=== PATIENT | female | born 2000 | race Caucasian/White ===

== ENCOUNTER 2020-08-16 09:45 | Outpatient (RCR) | payer BC, SELFPAY ==
--- NOTE | 2020-08-03 16:06 | P.PNPSP_ITS ---
Subjective Subjective Date of Service: 08/03/20 Reason For Visit: F31.4 Interim History: I have been OK, but a bit down. I am managing. I am getting enough sleep, doing my best to keep up with school work, I am just doing. 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 Reports improvement. 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 Med adjustment (Vraylar) has helped. Last week, noticed a shift down, not unbearable, but not the best. Discussed titration and augmentation options. Medication Compliance: Yes Side effects from medications: No Attending Groups: Yes Mental Status Exam Mental Status Exam Patient Orientation: Person, Place, Time and Situation Level of Consciousness: Awake and Alert Patient Behavior: Appropriate Mood Description: Calm, Appropriate and Nervous (at first) Affect Description: Calm and Appropriate Patient Cognition Impaired: No Ability to Follow Directions: Excellent Speech Pattern: Clear Memory Description: Intact Hallucinations: None Delusions: Not Present Thought Process: Intact Thought Content: positive for Intact Depressive Symptoms: Loss of Energy and Difficulty Concentrating Judgement: Good Assessment & Plan Patient educated on: medication risk/benefits and therapeutic strategies Informed Consent: understands Reason for contiued partial hosp. stay Substantial Risk for: rapid decompensation Certification I certify that partial hospital treatment is medically necessary due to the symptoms and problems resulting from the patient's mental illness and the failu re to treat the patient at the partial hospital level of care would likely result in the patient requiring inpatient psychiatric care which could not be prevented at a less intensive level of care. Greater than 50% of the session was spent on counseling and/or coordination of care Discharge Plan Discharge Attending provider: Akash Reddy Additional Instructions: Begin Trileptal 300 mg HS Medications: New oxcarbazepine 300 mg tablet 300 mg PO BEDTIME Qty: 7 RF: 0 No Action lamotrigine 200 mg tablet 200 mg PO BID RF: 0 methylphenidate HCl 10 mg tablet 10 mg PO BEDTIME RF: 0 bupropion HCl 300 mg tablet extended release 24 hr 300 mg PO QAM RF: 0 bupropion HCl 150 mg tablet extended release 24 hr 150 mg PO QAM RF: 0 Vyvanse 70 mg capsule 70 mg PO QAM RF: 0 Vraylar 1.5 mg 1.5 mg PO DAILY RF: 0 hydroxyzine pamoate 25 mg 25 - 50 mg PO PRN (Reason: Anxiety) RF: 0
--- NOTE | 2020-08-06 15:56 | PC.NURSE ---
I called and spoke with pt about treatment needs, aftercare plans, and potential discharge date.
--- NOTE | 2020-08-10 14:27 | P.PNPSP_ITS ---
Subjective Subjective Date of Service: 08/10/20 Reason For Visit: F31.4 Interim History: Nay reports she has been working on what she needs for accomodations for her course work. She has asked for input from the group and from her therapist. She has come up with a few ideas-to ask that the three lowest grades per class are dismissed, to ask that she is allowed to not turn in assignments which are less important overall, to have no immediate deadlines and be allowed to turn in assignments upon completion and to possibly take the lab she is assigned to this semester next semester as she has missed three classes due to treatment responsibilities and is mandated to be present for the lab. Overall, she reports feeling overwhelmed at times. She has not initiated Trileptal. She reports she has had an up swing in mood with some modest increase in her energy-she evaluates this when she wants to clean and re- organize her rock collection. Sleep is slightly decreased, but adequate. Medication Compliance: Yes Side effects from medications: No Attending Groups: Yes Review of Systems Review of Systems Yes all other systems are reviewed and are negative Psychiatric: Reports mood swings Comments: upswing in energy, cleaning, organizing Mental Status Exam Mental Status Exam Patient Orientation: Person, Place, Time and Situation Level of Consciousness: Awake, Appropriate and Alert Patient Behavior: Appropriate and Cooperative Mood Description: Appropriate, Anxious and Apprehensive Affect Description: Appropriate, Anxious and Apprehensive Patient Cognition Impaired: No Ability to Follow Directions: Excellent Speech Pattern: Clear and Appropriate Memory Description: Intact Hallucinations: None Delusions: Not Present Thought Process: Intact Thought Content: positive for Intact Depressive Symptoms: Increased Anxiety (increases in energy and cleaning organizing activity) Judgement: Good Assessment & Plan Patient educated on: diagnosis, medication risk/benefits and therapeutic strategies Informed Consent: understands and further education needed Reason for contiued partial hosp. stay Substantial Risk for: inability to function and rapid decompensation Certification I certify that partial hospital treatment is medically necessary due to the symptoms and problems resulting from the patient's mental illness and the failure to treat the patient at the partial hospital level of care would likely result in the patient requiring inpatient psychiatric care which could not be prevented at a less intensive level of care. Greater than 50% of the session was spent on counseling and/or coordination of care Discharge Plan Discharge Attending provider: Akash Reddy Additional Instructions: Nay has not initiated Trileptal 300 mg HS yet. Medications: New oxcarbazepine 300 mg tablet 300 mg PO BEDTIME Qty: 7 RF: 0 No Action lamotrigine 200 mg tablet 200 mg PO BID RF: 0 methylphenidate HCl 10 mg tablet 10 mg PO BEDTIME RF: 0 bupropion HCl 300 mg tablet extended release 24 hr 300 mg PO QAM RF: 0 bupropion HCl 150 mg tablet extended release 24 hr 150 mg PO QAM RF: 0 Vyvanse 70 mg capsule 70 mg PO QAM RF: 0 Vraylar 1.5 mg 1.5 mg PO DAILY RF: 0 hydroxyzine pamoate 25 mg 25 - 50 mg PO PRN (Reason: Anxiety) RF: 0
--- NOTE | 2020-08-13 13:57 | PC.NURSE ---
LM for pt's therapist, Taylor Whelan,
--- NOTE | 2020-08-16 16:13 | HO.PHPPROGNO ---
Subjective Subjective Date of Service: 08/16/20 Reason For Visit: F31.4 Interim History: Nay reports she has taken 3 doses of Trileptal without SE and with reasonable result. Today she feels more like normal and wants to continue the Trileptal for a time. Reports sleep is appropriate, appetite is good but finds it to be low mid-day. At times, feels wierd depersonalized dream like state with some thoughts of self-harm without plan along with impulsivity. She does not worry she will act on these however. Also reports adequate energy. Medication Compliance: Yes Side effects from medications: Yes Attending Groups: Yes Review of Systems Psychiatric: Reports anxiety, Reports mood swings and Reports suicidal ideation (passive thoughts of self-harm) Mental Status Exam Mental Status Exam Patient Orientation: Person, Place, Time and Situation Level of Consciousness: Awake, Appropriate and Alert Patient Behavior: Appropriate and Cooperative Mood Description: Flat Affect Description: Flat Patient Cognition Impaired: No Ability to Follow Directions: Excellent Speech Pattern: Clear (slowed), Soft-Spoken and Long Pauses Memory Description: Intact Hallucinations: None Delusions: Not Present Perceptual Disturbances: Depersonalization (at times she reports) Thought Process: Intact Thought Content: positive for Intact and positive for Logical Depressive Symptoms: Increased Anxiety and Thoughts of /Suicide (thoughts of self harm without plan or intent at times) Judgement: Good Assessment & Plan Patient educated on: medication risk/benefits and therapeutic strategies Informed Consent: understands Reason for contiued partial hosp. stay Substantial Risk for: harm to self, inability to function and rapid decompensation Certification I certify that partial hospital treatment is medically necessary due to the symptoms and problems resulting from the patient's mental illness and the failure to treat the patient at the partial hospital level of care would likely result in the patient requiring inpatient psychiatric care which could not be prevented at a less intensive level of care. Greater than 50% of the session was spent on counseling and/or coordination of care Discharge Plan Discharge Attending provider: Akash Reddy Additional Instructions: Continue current regime Continue Trileptal 300 mg hs. Medications: Continued oxcarbazepine 300 mg tablet 300 mg PO BEDTIME Qty: 14 RF: 1 No Action lamotrigine 200 mg tablet 200 mg PO BID RF: 0 methylphenidate HCl 10 mg tablet 10 mg PO BEDTIME RF: 0 bupropion HCl 300 mg tablet extended release 24 hr 300 mg PO QAM RF: 0 bupropion HCl 150 mg tablet extended release 24 hr 150 mg PO QAM RF: 0 Vyvanse 70 mg capsule 70 mg PO QAM RF: 0 Vraylar 1.5 mg 1.5 mg PO DAILY RF: 0 hydroxyzine pamoate 25 mg 25 - 50 mg PO PRN (Reason: Anxiety) RF: 0
== END 2020-08-16 23:55 | disposition home or self-care (01) ==
LOC: HO.PHPA 09:45
PROVIDERS: Visit Provider Psychiatry & Neurology Psychiatry
DX: F31.30 Bipolar disorder, current episode depressed, mild or moderate severity, unspecified (principal)
CPT/HCPCS: 90853; 99213; 99214

== ENCOUNTER 2021-01-04 14:44 | Outpatient (REF) | payer BC, SELFPAY ==
[2021-01-04 15:16] LABS: MANUAL DIFF FLAG NO
[2021-01-04 15:25] LABS: Basophils Percent Auto 0.9 % (0-2); Eosinophils Absolute Auto 0.1 X10*3/uL (0.0-0.4); Eosinophils Percent Auto 2.3 % (0-4); Hematocrit 41.8 % (37-47); Hemoglobin 14.3 g/dl (12.0-16.0); Imm Gran Abs Auto 0.01 X10*3/uL (0.00-0.03); Imm Gran Pct Auto 0.2 % (0.0-0.4); Lymphocytes Absolute Auto 1.7 X10*3/uL (1.2-4.9); Lymphocytes Percent Auto 38.1 % (20-40); Mean Corpuscular HGB Conc 34.2 g/dl (31.0-35.0); Mean Corpuscular Hemoglobin 32.4 pg (27.0-33.0); Mean Corpuscular Volume 94.8 fL (80-98); Mean Platelet Volume 8.4 fL (9.4-12.3); Monocytes Absolute Auto 0.5 X10*3/uL (0.1-1.2); Monocytes Percent Auto 10.4 % (2-11); Neutrophils Absolute Auto 2.1 X10*3/uL (2.0-8.3); Neutrophils Percent Auto 48.1 % (45-73); Platelet Count 287 X10*3/uL (160-400); Red Blood Count 4.41 X10*6/uL (4.20-5.50); Red Cell Distribution Width 11.2 % (11.0-16.0); White Blood Count 4.4 X10*3/uL (4.8-10.8)
[2021-01-04 15:57] LABS: Alanine Aminotransferase 39 U/L (0-31); Albumin Level 4.8 g/dL (3.5-5.0); Alkaline Phosphatase 64 U/L (39-117); Anion Gap 15 (12-20); Aspartate Amino Transferase 20 U/L (5-31); Bilirubin Total 0.5 mg/dL (0.0-1.0); Blood Urea Nitrogen 6 mg/dL (9-16); Calcium 9.3 mg/dL (8.4-10.2); Carbon Dioxide 25 mmol/L (22-29); Chloride 105 mmol/L (96-108); Estimated Glomerular Filt Rate > 60; Glucose Random 89 mg/dL (60-115); Potassium 4.7 mmol/L (3.3-5.1); Sodium 140 mmol/L (135-145); Total Protein 7.5 g/dL (6.5-8.0)
[2021-01-04 16:18] LABS: Free T4 (Free Thyroxine) 0.91 ng/dL (0.71-1.85); Thyroid Stimulating Hormone 1.33 uIU/mL (0.32-4.0)
== END 2021-01-04 14:45 | disposition home or self-care (01) ==
LOC: HO.LAB 14:44
PROVIDERS: PCP Family Medicine; Visit Provider Clinical Nurse Specialist Psychiatric/Mental Health, Adult
DX: F31.4 Bipolar disorder, current episode depressed, severe, without psychotic features (principal)
CPT/HCPCS: 36415; 80053; 84439; 84443; 85025

== ENCOUNTER 2021-01-31 14:13 | Outpatient (REF) | payer BC, SELFPAY ==
[2021-01-31 16:18] LABS: Lithium 0.14 mmol/L (0.60-1.20)
[2021-01-31 16:21] LABS: Anion Gap 11 (12-20); Blood Urea Nitrogen 8 mg/dL (9-16); Calcium 8.6 mg/dL (8.4-10.2); Carbon Dioxide 27 mmol/L (22-29); Chloride 103 mmol/L (96-108); Estimated Glomerular Filt Rate > 60; Glucose Random 86 mg/dL (60-115); Potassium 4.4 mmol/L (3.3-5.1); Sodium 137 mmol/L (135-145)
[2021-01-31 16:45] LABS: Thyroid Stimulating Hormone 1.69 uIU/mL (0.32-4.0)
== END 2021-01-31 14:14 | disposition home or self-care (01) ==
LOC: HO.LAB 14:13
PROVIDERS: PCP Family Medicine; Visit Provider Psychiatry & Neurology Psychiatry
DX: F31.9 Bipolar disorder, unspecified (principal)
CPT/HCPCS: 36415; 80048; 80178; 84443

== ENCOUNTER 2021-02-02 10:00 | Outpatient (RCR) | payer BC, SELFPAY ==
--- NOTE | 2021-01-03 14:44 | P.HPPSP_ITS ---
HPI Chief Complaint: depression Sources of Information: patient interviewed and chart reviewed HPI Narrative: 20 yo female, returns to [facility] for an increase in depressive and anxious sx along with SI, intrusive thoughts and images, visions of self harm with no plan or intent. Reports anxiety has been prominent with mood cycling. Reports 3 months of stability after her last discharge-she reported balance issues, felt it was Trileptal, so she stopped it and I seem to be in this wierd months long mixed episode with opposing feelings. Reports sleep is 6-8 hours with one week of 4-5 hours and recently 3 hours. When feeling depressed, she does lie in bed, not sleeping and feels this does have effect on sleep at night. Reports ongoing cannabis use daily, which she is unsure how helpful it is Past Psychiatric History: IP: Denies OP: Chantal De LunaMhYcbooy-[phone]. Call to Chantal who would like pt to have a lithium trial while here-father had success with [place]. Pt is unsure but will consider. Psychotherapy with Taylor Whelan since sixth grade. PHP: [facility] [place] Jun 2020 Medical Evaluation Reviewed: No (NA) [facility] Medical History (Updated 01/03/21 @ 17:52 by Ailyn Rosado, PAULINO) Attention deficit hyperactivity disorder Bipolar disorder, curr episode mixed, severe, w/o psychotic features Cannabis use disorder, severe, dependence Lactose intolerance Learning disability Raynaud phenomenon Right hip pain Family History: ADHD Bipolar Disorder Social History: Lives with parents and two brothers. Currently unemployed Brenden at [employer]- scheduled to complete degree 2020. Substance History: Cannabis daily. Denies hx of detox/rehab. Trauma History: Yes Diagnostics Labs Labs: Will order CBCD, CMP, FT4, TSH to prepare for [place] trial if pt decides to do this. She will discuss with her parents this evening. Meds/Allergies Meds Narrative: Lamictal 400 mg daily Wellbutrin 450 mg daily Vraylar 4.5 mg daily Vyvanse 70 mg daily Ritalin 10 mg daily-only takes when in school-currently not using Hydroxyzine 50-100 mg hs prn Allergies Allergies Allergy/AdvReac Type Severity Reaction Status Date / Time nickel Allergy Unknown rash Verified 08/03/20 16:39 raspberry [RASPBERRY] Allergy Unknown GI Issues Unverified 07/26/20 14:18 Mental Status Exam Mental Status Exam Patient Appearance: Appropriate Patient Orientation: Person, Place, Time and Situation Level of Consciousness: Awake and Alert Patient Behavior: Appropriate, Talkative and Cooperative Mood Description: Anxious and Apprehensive Affect Description: Flat Patient Cognition Impaired: No Ability to Follow Directions: Good Speech Pattern: Spontaneous Speech Memory Description: Intact Hallucinations: None Delusions: Not Present Thought Process: Rumination Thought Content: positive for [place], positive for Circumstantial and positive for Perseveration Depressive Symptoms: Increased Anxiety, Diff. Making Decisions, Difficulty Sleeping, Loss of Int. in Activity, Hopelessness, Unhappiness and Thoughts of /Suicide (denies current SI plan or intent today- hx [place] intrusive thoughts 4-5 x day) Judgement: Good Assessment & Plan Assessment & Plan (1) Bipolar disorder, curr episode mixed, severe, w/o psychotic features: Status: Acute Code(s): F31.63 - Bipolar disorder, current episode mixed, severe, without psychotic features Assessment and Plan: -Labs- CBCD, CMP, TSH, FT4, to prepare for possible [place] trial suggested by Chantal De Luna, pt's prescribing clinician. -Pt will discuss potential trial with her parents. (2) Cannabis use disorder, severe, dependence: Status: Acute Code(s): F12.20 - Cannabis dependence, uncomplicated Assessment and Plan: -Discussed the contribution of cannabis use to mood disorder. -Pt contracted to abstain during PHP. Discussed considering stopping use (3) Attention deficit hyperactivity disorder: Status: Inactive Code(s): F90.9 - Attention-deficit hyperactivity disorder, unspecified type Certification I certify that partial hospital treatment is medically necessary due to the symptoms and problems resulting from the patient's mental illness and the failure to treat the patient at the partial hospital level of care would likely result in the patient requiring inpatient psychiatric care which could not be prevented at a less intensive level of care. Telehealth Telehealth Location of provider rendering services: practice address Location of patient: address on file Patient Identification confirmed using: Name, : Yes Telehealth method: video Patient verbally consented to treatment: Yes Patient verbally consented to billing insurance company: Yes Patient informed of any privacy concerns related to visit: Yes Time spent with patient (mins): 40
[2021-01-04 08:25] VITALS: BMI 23.9
--- NOTE | 2021-01-04 08:47 | PC.ADMIT ---
Patient is a 20 year old female who self referred to the [facility] program d/t mood instability. Patient has a dx of Bipolar d/o and reports experiencing mixed episodes of extreme highs and lows. Patient reports increase in depression and anxiety and increased intrusive thoughts of and thoughts to self harm. Denied plan or intent to act on the thoughts. Denied hx of suicide attempts or hx of self harm. Patient reports that she has had SI for years that comes and goes and believes currently that the thoughts are more consistent. Patient has been to the PHP program in the past and found it helpful. Patient has been using marijuana daily to cope with how she is feeling. Patient acknowledges that this is an issue and wants to quit. Stated she smokes all day. She is aware that she can not smoke while in the program. Recommended patient participate in online substance use groups in addiction to [facility] for more support. Patients medications reconciled with patient and patient's pharmacy. Patient last filled Wellbutrin 11/09/20 and receives samples of Vraylar from her provider. Will complete reconciliation with patient out patient provider. Patient gave verbal permission to email her a copy of her saftey plan.
--- NOTE | 2021-01-06 08:43 | PC.NURSE ---
Patient's provider Chantal Savage called and left a voice mail confirming what medications patient is taking.
--- NOTE | 2021-01-17 15:12 | PC.NURSE ---
I called and LM with pt asking how the program is going for her, and reminding her of her discharge date on 01/21/21.
--- NOTE | 2021-01-17 16:57 | HO.PHPPROGNO ---
Subjective Subjective Date of Service: 01/17/21 Reason For Visit: depression Interim History: Reports mood fluctuations and being in a negative space often, energy is variable and my body feels manic at times , describes lability, anergy, sadness- I am seeing the world in a sad sense with a depressive bias . Pt has been making a decision regarding [place]-She has talked with her mom who believes she should try it and has talked with her dad a bit (he took [place] she reports) and told her he did not like feeling so flat. Pt agreed to labs last week which were OK-she was nervous about adding [place]-has appt with her prescriber on 01/19 and will continue to discuss. SI- not as bad-I can push the thoughts away-denies any plan or intent. Reports thoughts of just not wanting to be here without plan or intent. Sleep-poor last , but overall WNL Medical-denies Substance use-smoked x 1 Medication Compliance: Yes Side effects from medications: No Attending Groups: Yes Review of Systems Review of Systems Yes all other systems are reviewed and are negative (denies) Psychiatric: Reports anxiety, Reports depression and Reports mood swings Mental Status Exam Mental Status Exam Patient Appearance: Appropriate Patient Orientation: Person, Place, Time and Situation Level of Consciousness: Awake and Alert Patient Behavior: Talkative Mood Description: Flat Affect Description: Flat Patient Cognition Impaired: No Ability to Follow Directions: Good Speech Pattern: Spontaneous Speech Memory Description: Intact Hallucinations: None Delusions: Not Present Thought Process: Intact and Rumination Thought Content: positive for Intact Depressive Symptoms: Diff. Making Decisions and Unhappiness Judgement: Good Diagnostics Vital Signs (24Hr): Body Mass Index 23.9 Labs Labs: WBC 4.4, BUN .6, ALT 39, TSH and FT4 WNL Assessment & Plan Assessment & Plan (1) Cannabis use disorder, severe, dependence: Status: Acute Code(s): F12.20 - Cannabis dependence, uncomplicated (2) Bipolar disorder, curr episode mixed, severe, w/o psychotic features: Status: Acute Code(s): F31.63 - Bipolar disorder, current episode mixed, severe, without psychotic features Assessment and Plan: -Call to Chantal Justice to discuss pts sx, lab results and upcoming appt along with ambivalance about [place] trial. Chantal mcbride contineu discussion with pt. Certification I certify that partial hospital treatment is medically necessary due to the symptoms and problems resulting from the patient's mental illness and the failure to treat the patient at the partial hospital level of care would likely result in the patient requiring inpatient psychiatric care which could not be prevented at a less intensive level of care. Greater than 50% of the session was spent on counseling and/or coordination of care Discharge Plan Discharge Attending provider: Akash Reddy Medications: No Action lamotrigine 200 mg tablet 400 mg PO DAILY RF: 0 bupropion HCl 300 mg tablet extended release 24 hr 300 mg PO QAM RF: 0 bupropion HCl 150 mg tablet extended release 24 hr 150 mg PO QAM RF: 0 Vyvanse 70 mg capsule 70 mg PO QAM RF: 0 Vraylar 1.5 mg 4.5 mg PO DAILY RF: 0 hydroxyzine pamoate 25 mg 25 - 50 mg PO BEDTIME PRN (Reason: Anxiety) RF: 0 Telehealth Telehealth Location of provider rendering services: practice address Location of patient: address on file Patient Identification confirmed using: Name, : Yes Telehealth method: video Patient verbally consented to treatment: Yes Patient verbally consented to billing insurance company: Yes Patient informed of any privacy concerns related to visit: Yes Time spent with patient (mins): 15
--- NOTE | 2021-01-18 14:17 | PC.NURSE ---
RM from and called pt to discuss discharge from [facility] on 01/21/21. She reports feeling good about this plan, and has aftercare in place.
--- NOTE | 2021-01-20 14:25 | PC.NURSE ---
I called and spoke to pt after she reported passive SI in group, and depressed mood with increased manic energy. Pt said she is safe now, and coping well despite struggling. She agreed to stay in PHP another week, rather than discharge tomorrow. Pt has also agreed to start [place], as suggested by the medication providers. She said she spoke to Sylvie Hopkins APRN about this, and will call Sylvie today to tell her she wants to start it.
--- NOTE | 2021-01-21 13:29 | HO.PHPPROGNO ---
Subjective Subjective Date of Service: 01/21/21 Reason For Visit: depression Interim History: The patient reported mixed symptoms, with dysphoria, anhedonia and lack of energy with short bursts of increased energy, irritability and flight of ideas. She was open for a trial of [place] since she is taking Lamictal and samples of Vraylar with the highest dose of Wellbutrin. She denied safety concerns, she is able to contract for safety Medication Compliance: Yes Side effects from medications: No Review of Systems Acute medical concerns: No Medical Review of Systems: unchanged Mental Status Exam Mental Status Exam Patient Appearance: Well Grooomed Patient Orientation: Person, Place, Time and Situation Level of Consciousness: Awake Patient Behavior: Appropriate Mood Description: Withdrawn Affect Description: Constricted Patient Cognition Impaired: No Ability to Follow Directions: Good Speech Pattern: Clear Memory Description: Intact Hallucinations: None Delusions: Not Present Thought Process: Goal Oriented Thought Content: positive for [place] of Ideas Depressive Symptoms: Feelings of Worthlessness and Loss of Energy Judgement: Fair Judgement and Insight: Insight improved Diagnostics Vital Signs (24Hr): Body Mass Index 23.9 Assessment & Plan Assessment & Plan (1) Bipolar 1 disorder, mixed, moderate: Status: Acute Code(s): F31.62 - Bipolar disorder, current episode mixed, moderate Assessment and Plan: The patient agreed to start [place] 300 mg po qhs on top of her other medications Patient educated on: diagnosis, medication risk/benefits and therapeutic strategies Informed Consent: understands Reason for contiued partial hosp. stay Substantial Risk for: inability to function Certification I certify that partial hospital treatment is medically necessary due to the symptoms and problems resulting from the patient's mental illness and the failure to treat the patient at the partial hospital level of care would likely result in the patient requiring inpatient psychiatric care which could not be prevented at a less intensive level of care. Plan: Add [place] 300 mg po qhs F/U next week Greater than 50% of the session was spent on counseling and/or coordination of care Discharge Plan Discharge Attending provider: Aaksh Reddy Additional Instructions: Patient agreed to start a slow titration of [place] Medications: New lithium carbonate 300 mg capsule 300 mg PO BEDTIME Qty: 7 RF: 1 No Action lamotrigine 200 mg tablet 400 mg PO DAILY RF: 0 bupropion HCl 300 mg tablet extended release 24 hr 300 mg PO QAM RF: 0 bupropion HCl 150 mg tablet extended release 24 hr 150 mg PO QAM RF: 0 Vyvanse 70 mg capsule 70 mg PO QAM RF: 0 Vraylar 1.5 mg 4.5 mg PO DAILY RF: 0 hydroxyzine pamoate 25 mg 25 - 50 mg PO BEDTIME PRN (Reason: Anxiety) RF: 0 Telehealth Telehealth Location of provider rendering services: practice address Location of patient: address on file Patient Identification confirmed using: Name, : Yes Telehealth method: video Patient verbally consented to treatment: Yes Patient verbally consented to billing insurance company: Yes Patient informed of any privacy concerns related to visit: Yes Time spent with patient (mins): 20
--- NOTE | 2021-01-24 12:49 | PC.NURSE ---
Called patient and let her know that we cancelled groups for the remainder of the day as we lost power. Patient plans on attending groups tomorrow.
--- NOTE | 2021-01-24 12:59 | P.PNPSP_ITS ---
Subjective Subjective Date of Service: 01/24/21 Reason For Visit: depression Interim History: The patient reported that she has just started [place] at hs. She is more tired and thirsty since LIthium has started. No oversedated or tremors Medication Compliance: Yes Side effects from medications: Yes Review of Systems Review of Systems Yes all other systems are reviewed and are negative Mental Status Exam Mental Status Exam Patient Appearance: Well Grooomed Patient Orientation: Person Level of Consciousness: Awake Patient Behavior: Appropriate Mood Description: Calm Affect Description: Calm Patient Cognition Impaired: No Ability to Follow Directions: Good Speech Pattern: Clear Memory Description: Intact Hallucinations: None Delusions: Not Present Thought Content: positive for Intact Judgement: Fair Judgement and Insight: Insight: fair Diagnostics Vital Signs (24Hr): Body Mass Index 23.9 Assessment & Plan Assessment & Plan (1) Bipolar 1 disorder, mixed, moderate: Status: Acute Code(s): F31.62 - Bipolar disorder, current episode mixed, moderate Assessment and Plan: The patient tolerated very well 300 mg with no side effects, slightly better. She agreed to titrate slowly up to 450 mg at hs in 4 days then 600 mg F/U as per protocol Certification I certify that partial hospital treatment is medically necessary due to the symptoms and problems resulting from the patient's mental illness and the failure to treat the patient at the partial hospital level of care would likely result in the patient requiring inpatient psychiatric care which could not be prevented at a less intensive level of care. Greater than 50% of the session was spent on counseling and/or coordination of care Discharge Plan Discharge Attending provider: Akash Reddy Additional Instructions: Patient agreed to start a slow titration of [place] Medications: New lithium carbonate 300 mg capsule 300 mg PO BEDTIME Qty: 7 RF: 1 lithium carbonate 150 mg capsule 150 mg PO BEDTIME Qty: 14 RF: 0 Continued lamotrigine 200 mg tablet 400 mg PO DAILY RF: 0 bupropion HCl 300 mg tablet extended release 24 hr 300 mg PO QAM RF: 0 bupropion HCl 150 mg tablet extended release 24 hr 150 mg PO QAM RF: 0 Vyvanse 70 mg capsule 70 mg PO QAM RF: 0 Vraylar 1.5 mg 4.5 mg PO DAILY RF: 0 hydroxyzine pamoate 25 mg 25 - 50 mg PO BEDTIME PRN (Reason: Anxiety) RF: 0 Telehealth Telehealth Location of provider rendering services: practice address Location of patient: address on file Patient Identification confirmed using: Name, : Yes Telehealth method: voice only Patient verbally consented to treatment: Yes Patient verbally consented to billing insurance company: Yes Patient informed of any privacy concerns related to visit: Yes Time spent with patient (mins): 20
--- NOTE | 2021-02-02 13:44 | P.PNPSP_ITS ---
Subjective Subjective Date of Service: 02/02/21 Reason For Visit: depression Interim History: The patient never increased the [place] up to 600mg and her [place] level is 0.14. She missed 2 days and she felt a little down . She is going to be followed by her regular prescriber. She felt better with LIthium Medication Compliance: Intermittent Side effects from medications: No Review of Systems Review of Systems Yes all other systems are reviewed and are negative Mental Status Exam Mental Status Exam Patient Appearance: Well Grooomed Patient Orientation: Person, Place, Time and Situation Level of Consciousness: Awake and Appropriate Patient Behavior: Appropriate Mood Description: Calm Affect Description: Calm Patient Cognition Impaired: No Ability to Follow Directions: Good Speech Pattern: Clear Memory Description: Intact Hallucinations: None Delusions: Not Present Thought Process: Goal Oriented Thought Content: positive for Intact Judgement: Fair Diagnostics Vital Signs (24Hr): Body Mass Index 23.9 Assessment & Plan Assessment & Plan (1) Bipolar 1 disorder, mixed, moderate: Status: Acute Code(s): F31.62 - Bipolar disorder, current episode mixed, moderate Assessment and Plan: Increase [place] to 600 mg ER To be followed by her regular prescriber Certification I certify that partial hospital treatment is medically necessary due to the symptoms and problems resulting from the patient's mental illness and the failure to treat the patient at the partial hospital level of care would likely result in the patient requiring inpatient psychiatric care which could not be prevented at a less intensive level of care. Greater than 50% of the session was spent on counseling and/or coordination of care Discharge Plan Discharge Attending provider: Akash Reddy Additional Instructions: Patient agreed to start a slow titration of [place] Medications: New lithium carbonate 300 mg tablet extended release 600 mg PO BEDTIME Qty: 30 RF: 0 Continued lamotrigine 200 mg tablet 400 mg PO DAILY RF: 0 bupropion HCl 300 mg tablet extended release 24 hr 300 mg PO QAM RF: 0 bupropion HCl 150 mg tablet extended release 24 hr 150 mg PO QAM RF: 0 Vyvanse 70 mg capsule 70 mg PO QAM RF: 0 Vraylar 1.5 mg 4.5 mg PO DAILY RF: 0 hydroxyzine pamoate 25 mg 25 - 50 mg PO BEDTIME PRN (Reason: Anxiety) RF: 0 Telehealth Telehealth Location of provider rendering services: practice address Location of patient: address on file Patient Identification confirmed using: Name, : Yes Telehealth method: video Patient verbally consented to treatment: Yes Patient verbally consented to billing insurance company: Yes Patient informed of any privacy concerns related to visit: No Time spent with patient (mins): 15
--- NOTE | 2021-02-02 14:54 | PC.NURSE ---
Called and LM for pt asking for her to call me back to review discharge info and aftercare.
--- NOTE | 2021-02-03 08:50 | PC.NURSE ---
Patient prescriber Chantal James does not have a fax machine thus emailed her patient d/c medications list and labs completed on 01/31/21. Metter Level 0.14. Patient has a f/u appointment with her prescriber on 02/04/21 at 1500.
--- NOTE | 2021-02-03 16:03 | PC.NURSE ---
I called and left a message for Taylor Whelan at the [facility] for DBT ([phone]) informing her of pt's progress made in treatment and her discharge from [facility] today.
== END 2021-02-03 08:21 | disposition home or self-care (01) ==
LOC: HO.PHPA 10:00
PROVIDERS: Visit Provider Psychiatry & Neurology Psychiatry
DX: F31.62 Bipolar disorder, current episode mixed, moderate (principal); Z79.899 Other long term (current) drug therapy
CPT/HCPCS: 90791; 90853; 99213

== ENCOUNTER 2022-04-03 14:29 | Outpatient (REF) | payer BC, SELFPAY ==
[2022-04-03 15:23] LABS: Lithium 0.37 mmol/L (0.60-1.20)
[2022-04-03 15:35] LABS: Alanine Aminotransferase 26 U/L (0-31); Albumin Level 4.3 g/dL (3.5-5.0); Alkaline Phosphatase 59 U/L (39-117); Anion Gap 12 (12-20); Aspartate Amino Transferase 27 U/L (5-31); Bilirubin Total 0.4 mg/dL (0.0-1.0); Blood Urea Nitrogen 11 mg/dL (9-16); Calcium 9.2 mg/dL (8.4-10.2); Carbon Dioxide 27 mmol/L (22-29); Chloride 105 mmol/L (96-108); Estimated Glomerular Filt Rate > 60; Glucose Random 88 mg/dL (60-115); Potassium 4.6 mmol/L (3.3-5.1); Sodium 139 mmol/L (135-145); Total Protein 6.6 g/dL (6.5-8.0)
[2022-04-03 15:58] LABS: Free T4 (Free Thyroxine) 0.82 ng/dL (0.71-1.85); Thyroid Stimulating Hormone 2.03 uIU/mL (0.32-4.0)
== END 2022-04-03 14:30 | disposition home or self-care (01) ==
LOC: HO.LAB 14:29
PROVIDERS: PCP Family Medicine; Visit Provider Nurse Practitioner Psychiatric/Mental Health
DX: F31.62 Bipolar disorder, current episode mixed, moderate (principal); Z79.899 Other long term (current) drug therapy
CPT/HCPCS: 36415; 80053; 80178; 84439; 84443

== ENCOUNTER 2022-04-10 14:49 | Outpatient (REF) | payer BC, SELFPAY ==
--- NOTE | 2022-04-10 14:55 | ECG_ITS ---
Test Reason : F31.62 Blood Pressure : / mmHG Vent. Rate : 077 BPM Atrial Rate : 077 BPM P-R Int : 122 ms QRS Dur : 084 ms QT Int : 384 ms P-R-T Axes : 046 081 028 degrees QTc Int : 434 ms Normal sinus rhythm with sinus arrhythmia Normal ECG No previous ECGs available Referred By: Ngozi Valenzuela Electronically Signed By:Yves Oleary
[2022-04-10 16:21] LABS: Alanine Aminotransferase 26 U/L (0-31); Alkaline Phosphatase 56 U/L (39-117); Anion Gap 10 (12-20); Aspartate Amino Transferase 28 U/L (5-31); Bilirubin Total 0.4 mg/dL (0.0-1.0); Blood Urea Nitrogen 10 mg/dL (9-16); Calcium 8.7 mg/dL (8.4-10.2); Carbon Dioxide 28 mmol/L (22-29); Chloride 104 mmol/L (96-108); Estimated Glomerular Filt Rate > 60; Glucose Random 105 mg/dL (60-115); Potassium 3.9 mmol/L (3.3-5.1); Sodium 138 mmol/L (135-145); Total Protein 6.1 g/dL (6.5-8.0)
[2022-04-10 16:41] LABS: Free T4 (Free Thyroxine) 0.72 ng/dL (0.71-1.85); Thyroid Stimulating Hormone 1.73 uIU/mL (0.32-4.0)
== END 2022-04-10 14:50 | disposition home or self-care (01) ==
LOC: HO.LAB 14:49
PROVIDERS: PCP Family Medicine; Visit Provider Nurse Practitioner Psychiatric/Mental Health
DX: F31.62 Bipolar disorder, current episode mixed, moderate (principal); Z79.899 Other long term (current) drug therapy
CPT/HCPCS: 36415; 80053; 80178; 84439; 84443; 93005

== ENCOUNTER 2022-04-20 11:30 | Outpatient (RCR) | payer BC, SELFPAY ==
[2022-03-21 14:25] VITALS: BMI 21.7
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
--- NOTE | 2022-03-24 08:06 | PC.NURSE ---
Case opened in treatment team
--- NOTE | 2022-03-24 14:04 | PC.NURSE ---
Patient appeared sad in the 4th group. I called he to check in on her. She stated she did not sleep well last night only getting 2-3 hours and she has her menses which causes her to feel sad. Asked her if she was having any safety issues any SI. Patient stated she has the thoughts at times when she is stressed however she is able to let them go. Denied plan or intent to harm or kill herself. Patient stated she is able to reach out to her parents if needed. Patient has the crisis number if needed. Patient reports seeing shadows on the ceilings at times however stated she is doing ok. Stated she feels grounded. Stated she is sad when she hears others stories and sometimes feels flooded with emotions. Patient aware if the groups are too triggering she may take a break. Patient stated she thinks it is good that she is in the program at this time. She has plans to get together with her entire family at [facility] tomorrow and has an appointment with her therapist tomorrow as well. She plans on returning to the program on Sunday.
--- NOTE | 2022-03-28 09:08 | HO.PHPPROGNO ---
Subjective Subjective Date of Service: 03/28/22 Reason For Visit: bipolar,PTSD,PALOMO,ADHD,social anxiety Guardianship: No Medical Problems Affecting Mental Status: No Interim History: I feel more level today, still depressed, but improving . Says last week was more emotional, because of menstrual cycle . No SI, no AH/VH, feels safe. Did not yet try prn propanolol. Medication Compliance: Yes Side effects from medications: No Attending Groups: Yes Review of Systems Acute medical concerns: No Medical Review of Systems: unchanged Review of Systems Review of Systems Yes all other systems are reviewed and are negative Constitutional: Reports no additional constitutional complaints Mental Status Exam Mental Status Exam Narrative: NAD. Fully alert and attentive during encounter. No perceptual disturbances noted. Patient Appearance: Well Grooomed and Appropriate Patient Orientation: Person, Place, Time and Situation Level of Consciousness: Appropriate and Alert Patient Behavior: Appropriate, Cooperative and Good Eye Contact Mood Description: Depressed Affect Description: Depressed Patient Cognition Impaired: No Ability to Follow Directions: Good Speech Pattern: Clear, Appropriate and Coherent Memory Description: Intact Hallucinations: None Delusions: Not Present Perceptual Disturbances: Depersonalization Thought Process: Intact Thought Content: positive for Intact Depressive Symptoms: Increased Anxiety, Difficulty Sleeping, Loss of Int. in Activity and Increased Fatigue Judgement: Fair Diagnostics Vital Signs (24Hr): BMI result Body Mass Index 21.7 Assessment & Plan Assessment & Plan (1) Bipolar 1 disorder, mixed, moderate: Status: Acute Code(s): F31.62 - Bipolar disorder, current episode mixed, moderate Assessment and Plan: Patient reports feeling more stable today, although continues with depression sx. States that last week she was more labile, due to menstruation. Says last week she felt overwhelmed, flooded with memories during groups . Has not yet tried prn propanolol, says has not needed to. She denies any SI/HI, no safety concerns. Says her EMDR therapist has recommended she try acupuncture or massage to help relieve stress. She is considering this. She denies any AH/VH, and did not display any delusional thought during encounter. She is content with current medicaiton regimen, and is does not feel need for any changes at this time. Plan 1. Continue with current plan of care. 2. Continue with current medication regimen as prescribed by outpatient provider. 3. Follow-up as per protocol. Patient educated on: diagnosis, medication risk/benefits and therapeutic strategies Informed Consent: understands Reason for contiued partial hosp. stay Substantial Risk for: harm to self, inability to function, rapid decompensation and med/psych decompensation Certification I certify that partial hospital treatment is medically necessary due to the symptoms and problems resulting from the patient's mental illness and the failure to treat the patient at the partial hospital level of care would likely result in the patient requiring inpatient psychiatric care which could not be prevented at a less intensive level of care. I spent minutes with the patient and/or on the patient floor today, greater than?50% of which was spent counseling/coordinating care. Discharge Plan Discharge Attending provider: Vinicius Thomson Medications: New propranolol 10 mg tablet 10 mg PO BID PRN (Reason: anxiety) Qty: 5 0RF No Action bupropion HCl 150 mg tablet extended release 24 hr 150 mg PO QAM 0RF Vyvanse 70 mg capsule 70 mg PO QAM 0RF trazodone 50 mg Tablet 50 mg PO BEDTIME 0RF lithium carbonate 150 mg Capsule 150 mg PO DAILY 0RF lithium carbonate 450 mg Tablet Extended Release 450 mg PO BEDTIME 0RF lorazepam 0.5 mg Tablet 0.5 mg PO DAILY PRN (Reason: Anxiety) 0RF Rx Instructions: # 7 tabs filled 02/22/22. sertraline [Zoloft] 25 mg Tablet 37.5 mg PO DAILY 0RF Label Comments: Patient stated her prescriber increased from 25 mg to 37.5 mg daily this past weekend. Telehealth Telehealth Location of provider rendering services: practice address Location of patient: address on file Patient Identification confirmed using: Name, : Yes Telehealth method: video Patient verbally consented to treatment: Yes Patient verbally consented to billing insurance company: Yes Patient informed of any privacy concerns related to visit: Yes Minutes spent on Phone/Video with Pt.: 15
--- NOTE | 2022-04-03 15:06 | P.PNPSP_ITS ---
Subjective Subjective Date of Service: 04/03/22 Reason For Visit: bipolar,PTSD,PALOMO,ADHD,social anxiety Medical Problems Affecting Mental Status: No Interim History: Describes mood as ?overall getting better, but I still have some sadness and anxiety. No SI/HI, no safety concern. Outpatient provider increased Zoloft to 75 mg daily. Has not yet tried propanolol p.r.n. for social anxiety, plans to try it this week prior to several upcoming job interviews. Has had some difficulty staying asleep throughout night. Medication Compliance: Yes Side effects from medications: No Attending Groups: Yes Review of Systems Acute medical concerns: No Medical Review of Systems: unchanged Review of Systems Review of Systems Yes all other systems are reviewed and are negative Constitutional: Reports no additional constitutional complaints Mental Status Exam Mental Status Exam Narrative: NAD. Fully alert and attentive during encounter. No perceptual disturbances noted. Patient Appearance: Well Grooomed and Appropriate Patient Orientation: Person, Place, Time and Situation Level of Consciousness: Appropriate and Alert Patient Behavior: Appropriate, Cooperative and Good Eye Contact Mood Description: Depressed (continues depressed, but improving. ) and Anxious Affect Description: Appropriate and Depressed Patient Cognition Impaired: No Ability to Follow Directions: Good Speech Pattern: Clear, Appropriate and Coherent Memory Description: Intact Hallucinations: None Delusions: Not Present Perceptual Disturbances: Depersonalization Thought Process: Intact Thought Content: positive for Intact Depressive Symptoms: Increased Anxiety, Difficulty Sleeping (waking up, unable to fall back asleep), Loss of Int. in Activity and Increased Fatigue Judgement: Fair Diagnostics Vital Signs (24Hr): BMI result Body Mass Index 21.7 Assessment & Plan Assessment & Plan (1) Bipolar 1 disorder, mixed, moderate: Status: Acute Code(s): F31.62 - Bipolar disorder, current episode mixed, moderate Assessment and Plan: Describes mood as ?overall getting better, but I still have some sadness and anxiety. No SI/HI, no safety concern. Outpatient provider increased Zoloft to 75 mg daily recently. Has not yet tried propanolol p.r.n. for social anxiety, plans to try it this week prior to several upcoming job interviews. Reviewed medication side effects, indications. Advised to try while at home, prior to taking before a job interview. Also suggested taking a half dose if feels the full dose too sedating. Has had some difficulty staying asleep throughout night. Reviewed sleep hygiene, including limit caffeine, taking scheduled Wellbutrin and Vyvanse earlier in the day, utilizing other techniques such as dark room, white noise. Patient reports she is trying these methods. has OTC melatonin at home, reports will try low-dose with her trazodone. Has utilized lorazepam over weekend in order to help sleep. (2) Cannabis use disorder, severe, dependence: Status: Acute Code(s): F12.20 - Cannabis dependence, uncomplicated Assessment and Plan: Continues to reduce cannabis consumption. Has been seeking out support. Plan 1. Continue with current [facility] plan of care. 2. Patient will try low-dose [id number] melatonin that she has in-home, for sleep. 3. Follow-up as per protocol. Patient educated on: diagnosis, medication risk/benefits and therapeutic strategies Informed Consent: understands Reason for contiued partial hosp. stay Substantial Risk for: inability to function and med/psych decompensation Certification I certify that partial hospital treatment is medically necessary due to the symptoms and problems resulting from the patient's mental illness and the failure to treat the patient at the partial hospital level of care would likely result in the patient requiring inpatient psychiatric care which could not be prevented at a less intensive level of care. I spent minutes with the patient and/or on the patient floor today, greater than?50% of which was spent counseling/coordinating care. Discharge Plan Discharge Attending provider: Vinicius Thomson Medications: New propranolol 10 mg tablet 10 mg PO BID PRN (Reason: anxiety) Qty: 5 0RF No Action bupropion HCl 150 mg tablet extended release 24 hr 150 mg PO QAM 0RF Vyvanse 70 mg capsule 70 mg PO QAM 0RF trazodone 50 mg Tablet 50 mg PO BEDTIME 0RF lithium carbonate 150 mg Capsule 150 mg PO DAILY 0RF lithium carbonate 450 mg Tablet Extended Release 450 mg PO BEDTIME 0RF lorazepam 0.5 mg Tablet 0.5 mg PO DAILY PRN (Reason: Anxiety) 0RF Rx Instructions: # 7 tabs filled 02/22/22. sertraline [Zoloft] 25 mg Tablet 37.5 mg PO DAILY 0RF Label Comments: Patient stated her prescriber increased from 25 mg to 37.5 mg daily this past weekend. Telehealth Telehealth Location of provider rendering services: practice address Location of patient: address on file Patient Identification confirmed using: Name, : Yes Telehealth method: video Patient verbally consented to treatment: Yes Patient verbally consented to billing insurance company: Yes Patient informed of any privacy concerns related to visit: Yes Minutes spent on Phone/Video with Pt.: 15
--- NOTE | 2022-04-06 14:52 | P.PNPSP_ITS ---
Subjective Subjective Date of Service: 04/06/22 Reason For Visit: bipolar,PTSD,PALOMO,ADHD,social anxiety Medical Problems Affecting Mental Status: No Interim History: States ?I am doing okay, surprisingly ?. Reports did not sleep last night, stayed up and cleaned room all night. Reports feeling hypomanic. Denies SI at present, states had felt as SI last evening, with no plan/intent. Reports taking lithium consistently. Describes thoughts as ?scattered ?. Medication Compliance: Yes Side effects from medications: No Attending Groups: Yes Review of Systems Acute medical concerns: No Medical Review of Systems: unchanged Review of Systems Review of Systems Yes all other systems are reviewed and are negative Constitutional: Reports no additional constitutional complaints Mental Status Exam Mental Status Exam Narrative: NAD. Fully alert and attentive during encounter. No perceptual disturbances noted. No sleep last night, does not feel tired. Flight of ideas, distractibility, rapid speech. States feels hypomanic . Denies SI at present, reports has had increasing SI over past several days, with no plan/intent. Patient Appearance: Well Grooomed and Appropriate Patient Orientation: Person, Place, Time and Situation Level of Consciousness: Appropriate and Alert Patient Behavior: Appropriate, Cooperative and Good Eye Contact Mood Description: Anxious and Expansive Affect Description: Expansive Patient Cognition Impaired: No Ability to Follow Directions: Good Speech Pattern: Clear, Appropriate, Coherent and Rapid Memory Description: Intact Hallucinations: None Delusions: Not Present Perceptual Disturbances: Depersonalization Thought Process: Intact Thought Content: positive for Intact, positive for Flight of Ideas and positive for Suicidal Ideation (Reports flashes, looking at belt in her room and string of lytes as possible objects, states has no plan/intent.) Depressive Symptoms: Increased Anxiety, Insomnia (Reports did not sleep at all last night, does not feel tired.), Loss of Int. in Activity, Thoughts of /Suicide and Difficulty Concentrating Judgement: Fair Diagnostics Vital Signs (24Hr): BMI result Body Mass Index 21.7 Labs Labs: [place] level 0.37 on 04/03/22. Assessment & Plan Assessment & Plan (1) Bipolar 1 disorder, mixed, moderate: Status: Acute Code(s): F31.62 - Bipolar disorder, current episode mixed, moderate Assessment and Plan: Patient reports feeling labile, hypomanic. Flight of ideas evident, speech rapid. States ?my energy is very scattered ?. Describes feeling ?like a mixed feeling sad, scattered, anxious. It is not good ?. Reports increased flashes of having SI. States ?my eyes would go to the string light in my room, then the belt, etc. in my room. I do not want to do it, but I have not had images of SI so vividly like this in a long time ?. Reports that she does feel safe at this time. Discussed need to notify us immediately and call crisis if she feels she will act on any thoughts of self-harm/suicide. She was in full agreement with this. Reviewed lithium level as being low. She states that she is taking lithium as prescribed, with 150 mg in the morning, 450 at bedtime. We discussed increasing dose to 300 mg in the morning, 450 at bedtime. She is in agreement with this plan. She also has not been utilizing lorazepam, but has found it helpful in the past for sleep. Requesting refill, as she has 1 left. We discussed getting further labs on Sunday, including a new lithium level, kidney function, EKG. She is in agreement with this plan. (2) Cannabis use disorder, severe, dependence: Status: Acute Code(s): F12.20 - Cannabis dependence, uncomplicated Assessment and Plan: Continues to work on harm reduction techniques. Reports that she will try to sit with her feelings, rather than turn to cannabis when she is experiencing anything uncomfortable. She states that she wants to be able to handle life difficulties without turning to cannabis as a coping mechanism. No withdrawal symptoms noted or reported. Plan 1. Increase lithium to 300 mg in a.m., 450 mg at bedtime. 2. Encouraged to utilize p.r.n. lorazepam. 3. Continue other medications as currently prescribed. 4. Patient agrees to call crisis if suicidal ideation worsen, or develops plan / intent. 5. To obtain new lithium level, kidney function, TSH/T4, EKG on Sunday. 6. Continue with current [facility] plan of care at this time. Patient educated on: diagnosis, medication risk/benefits, substance abuse and therapeutic strategies Informed Consent: understands Reason for contiued partial hosp. stay Substantial Risk for: harm to self, inability to function, rapid decompensation and med/psych decompensation Certification I certify that partial hospital treatment is medically necessary due to the symptoms and problems resulting from the patient's mental illness and the failure to treat the patient at the partial hospital level of care would likely result in the patient requiring inpatient psychiatric care which could not be prevented at a less intensive level of care. I spent minutes with the patient and/or on the patient floor today, greater than?50% of which was spent counseling/coordinating care. Discharge Plan Discharge Attending provider: Vinicius Thomson Medications: New propranolol 10 mg tablet 10 mg PO BID PRN (Reason: anxiety) Qty: 5 0RF lithium carbonate 300 mg capsule 300 mg PO DAILY Qty: 30 0RF lorazepam 0.5 mg tablet 0.5 mg PO DAILY PRN (Reason: anxiety) Qty: 30 0RF Discontinued lithium carbonate 150 mg Capsule 150 mg PO DAILY lorazepam 0.5 mg Tablet 0.5 mg PO DAILY PRN (Reason: Anxiety) Rx Instructions: # 7 tabs filled 02/22/22. No Action bupropion HCl 150 mg tablet extended release 24 hr 150 mg PO QAM Vyvanse 70 mg capsule 70 mg PO QAM trazodone 50 mg Tablet 50 mg PO BEDTIME lithium carbonate 450 mg Tablet Extended Release 450 mg PO BEDTIME sertraline [Zoloft] 25 mg Tablet 37.5 mg PO DAILY Label Comments: Patient stated her prescriber increased from 25 mg to 37.5 mg daily this past weekend. Telehealth Telehealth Location of provider rendering services: practice address Location of patient: address on file Patient Identification confirmed using: Name, : Yes Telehealth method: video Patient verbally consented to treatment: Yes Patient verbally consented to billing insurance company: Yes Patient informed of any privacy concerns related to visit: Yes Minutes spent on Phone/Video with Pt.: 15
--- NOTE | 2022-04-11 14:26 | PC.NURSE ---
I called the clients therapist, Taylor Whelan ,and requested a call back to discuss client progress in the program.
--- NOTE | 2022-04-11 15:28 | HO.PHPPROGNO ---
Subjective Subjective Date of Service: 04/11/22 Reason For Visit: bipolar,PTSD,PALOMO,ADHD,social anxiety Medical Problems Affecting Mental Status: No Interim History: Continues with dysphoric mood. States that she often feels stable in the morning, but that her mood dropped down as the day goes on. Denies SI, AH, VH. Reports intrusive thoughts. Medication Compliance: Yes (Reports medication compliance, although lithium level continues to decline.) Side effects from medications: No Attending Groups: Yes Review of Systems Acute medical concerns: No Medical Review of Systems: unchanged Review of Systems Review of Systems Yes all other systems are reviewed and are negative Constitutional: Reports no additional constitutional complaints Mental Status Exam Mental Status Exam Narrative: NAD. Denies SI/HI/AH/VH. Reports increased depression, intrusive thoughts. Patient Appearance: Well Grooomed and Appropriate Patient Orientation: Person, Place, Time and Situation Level of Consciousness: Appropriate and Alert Patient Behavior: Appropriate, Cooperative, Good Eye Contact and Crying (Tearful during encounter.) Mood Description: Depressed and Anxious Affect Description: Depressed and Anxious Patient Cognition Impaired: No Ability to Follow Directions: Good Speech Pattern: Clear, Appropriate and Coherent Memory Description: Intact Hallucinations: None Delusions: Not Present Perceptual Disturbances: Depersonalization Thought Process: Intact Thought Content: positive for Intact (Although describes intrusive thoughts at times.) Depressive Symptoms: Increased Anxiety, Loss of Int. in Activity, Unhappiness, Increased Fatigue, Thoughts of /Suicide and Difficulty Concentrating Judgement: Fair Diagnostics Vital Signs (24Hr): BMI result Body Mass Index 21.7 Assessment & Plan Assessment & Plan (1) Bipolar 1 disorder, mixed, moderate: Status: Acute Code(s): F31.62 - Bipolar disorder, current episode mixed, moderate Assessment and Plan: Continues with dysphoric mood. States that she often feels stable in the morning, but that her mood dropped down as the day goes on. Denies SI, AH, VH. Reports intrusive thoughts. Discussed lithium and lab results. She states that she is taking the lithium as directed. I did review labs with her including lithium level continues to drop. We discussed having her mother assist with medications, and getting a pill organizer. We discussed lowering the dose at this time, as I am not sure if she has been taking at. She will switch down to 150 mg in the morning, could continue 450 mg at night. She became tearful, states that she feels as if she is ?empty, numb, hollow, anxious, dread, heavy sadness ?. She states she has felt this way in the past, and she does not like it. She denies any hallucinations, or thoughts of harm to self. She did agree that if she does begin to have any suicidal ideation she will notify her parents immediately and call crisis. She stated that she does feel safe today. This advertising writer left a voicemail for patient's outpatient psychiatric provider, Chantal Savage, at [phone]. (2) Cannabis use disorder, severe, dependence: Status: Acute Code(s): F12.20 - Cannabis dependence, uncomplicated Assessment and Plan: Patient continues to attend substance use Co occurring disorder group, reports that she is listening. Plan 1. Continue with current [facility] plan of care. 2. Attempt to contact outpatient provider if do not receive a call back. 3. Lower lithium dose to 150 mg in the a.m., 450 at night. 4. Continue with other medications as currently prescribed. 5. Follow-up as per protocol. Patient educated on: diagnosis, medication risk/benefits, substance abuse and therapeutic strategies Reason for contiued partial hosp. stay Substantial Risk for: harm to self, inability to function, rapid decompensation and med/psych decompensation Certification I certify that partial hospital treatment is medically necessary due to the symptoms and problems resulting from the patient's mental illness and the failure to treat the patient at the partial hospital level of care would likely result in the patient requiring inpatient psychiatric care which could not be prevented at a less intensive level of care. I spent minutes with the patient and/or on the patient floor today, greater than?50% of which was spent counseling/coordinating care. Discharge Plan Discharge Attending provider: Vinicius Thomson Medications: New propranolol 10 mg tablet 10 mg PO BID PRN (Reason: anxiety) Qty: 5 0RF lorazepam 0.5 mg tablet 0.5 mg PO DAILY PRN (Reason: anxiety) Qty: 30 0RF lithium carbonate 150 mg capsule 300 mg PO DAILY Qty: 7 0RF Rx Instructions: Take lithium 150mg in the morning Discontinued lithium carbonate 150 mg Capsule 150 mg PO DAILY lorazepam 0.5 mg Tablet 0.5 mg PO DAILY PRN (Reason: Anxiety) Rx Instructions: # 7 tabs filled 02/22/22. No Action bupropion HCl 150 mg tablet extended release 24 hr 150 mg PO QAM Vyvanse 70 mg capsule 70 mg PO QAM trazodone 50 mg Tablet 50 mg PO BEDTIME lithium carbonate 450 mg Tablet Extended Release 450 mg PO BEDTIME sertraline [Zoloft] 25 mg Tablet 37.5 mg PO DAILY Label Comments: Patient stated her prescriber increased from 25 mg to 37.5 mg daily this past weekend. Telehealth Telehealth Location of provider rendering services: practice address Location of patient: address on file Patient Identification confirmed using: Name, : Yes Telehealth method: video Patient verbally consented to treatment: Yes Patient verbally consented to billing insurance company: Yes Patient informed of any privacy concerns related to visit: Yes Minutes spent on Phone/Video with Pt.: 15
--- NOTE | 2022-04-17 14:52 | HO.PHPPROGNO ---
Subjective Subjective Date of Service: 04/17/22 Reason For Visit: bipolar,PTSD,PALOMO,ADHD,social anxiety Medical Problems Affecting Mental Status: No Interim History: Reports feeling safe, but overall not doing well. Continues with dysphoric mood. Has had recent passive SI, no intent or plan. Has had difficulty with sleep. Reports feeling ?numb? at times. Medication Compliance: Yes Side effects from medications: No Attending Groups: Yes Review of Systems Acute medical concerns: No Medical Review of Systems: unchanged Review of Systems Review of Systems Yes all other systems are reviewed and are negative Constitutional: Reports no additional constitutional complaints Mental Status Exam Mental Status Exam Narrative: NAD. Patient Appearance: Appropriate Patient Orientation: Person, Place, Time and Situation Level of Consciousness: Appropriate Patient Behavior: Appropriate, Cooperative and Good Eye Contact Mood Description: Depressed Affect Description: Blunted and Flat Patient Cognition Impaired: No Ability to Follow Directions: Good Speech Pattern: Clear, Appropriate and Coherent Memory Description: Intact Hallucinations: None Delusions: Not Present Perceptual Disturbances: Depersonalization Thought Process: Intact Thought Content: positive for Intact and positive for Suicidal Ideation (Recent passive over weekend, no intent or plan.) Depressive Symptoms: Difficulty Sleeping, Loss of Int. in Activity, Hopelessness, Unhappiness, Increased Fatigue, Thoughts of /Suicide and Difficulty Concentrating Judgement: Fair Diagnostics Vital Signs (24Hr): BMI result Body Mass Index 21.7 Assessment & Plan Assessment & Plan (1) Bipolar disorder, curr episode mixed, severe, w/o psychotic features: Status: Acute Code(s): F31.63 - Bipolar disorder, current episode mixed, severe, without psychotic features Assessment and Plan: Reports feeling safe, but overall not doing well. Continues with dysphoric mood. Has had recent passive SI, no intent or plan. No HI/AH/VH, no safety concerns at this time. Reports that she feels completely safe at this time. Has had difficulty with sleep. Has utilized p.r.n. lorazepam for sleep, but still continues with some sleep disturbance. Reports feeling ?numb? at times. Discussed changing lithium to 600 mg at bedtime rather than splitting dose, in order to help with sleep. She is agreeable to this. Discussed increasing Zoloft to 50 mg daily, in order to help address further symptoms of depression. She is agreeable to this. She states she has been taking her medications as prescribed, and has been found in groups helpful, but overall feels she is just not improving very much. (2) Cannabis use disorder, severe, dependence: Status: Acute Code(s): F12.20 - Cannabis dependence, uncomplicated Assessment and Plan: Fully participated in COD group, did not discuss any recent cannabis use during group or this encounter. Plan 1. Continue with current [facility] plan of care. 2. Switch lithium dosing to all 600mg at bedtime, rather than split dosing. 3. Increase Zoloft to 50 mg daily. 4. Follow-up as per protocol. Patient educated on: diagnosis, medication risk/benefits, substance abuse and therapeutic strategies Informed Consent: understands Reason for contiued partial hosp. stay Substantial Risk for: harm to self, inability to function and med/psych decompensation Certification I certify that partial hospital treatment is medically necessary due to the symptoms and problems resulting from the patient's mental illness and the failure to treat the patient at the partial hospital level of care would likely result in the patient requiring inpatient psychiatric care which could not be prevented at a less intensive level of care. I spent minutes with the patient and/or on the patient floor today, greater than?50% of which was spent counseling/coordinating care. Discharge Plan Discharge Attending provider: Vinicius Thomson Medications: New propranolol 10 mg tablet 10 mg PO BID PRN (Reason: anxiety) Qty: 5 0RF lorazepam 0.5 mg tablet 0.5 mg PO DAILY PRN (Reason: anxiety) Qty: 30 0RF sertraline 50 mg tablet 50 mg PO DAILY Qty: 30 0RF lithium carbonate 600 mg capsule 600 mg PO BEDTIME Qty: 30 0RF Discontinued lithium carbonate 150 mg Capsule 150 mg PO DAILY lithium carbonate 450 mg Tablet Extended Release 450 mg PO BEDTIME lorazepam 0.5 mg Tablet 0.5 mg PO DAILY PRN (Reason: Anxiety) Rx Instructions: # 7 tabs filled 02/22/22. sertraline [Zoloft] 25 mg Tablet 37.5 mg PO DAILY Label Comments: Patient stated her prescriber increased from 25 mg to 37.5 mg daily this past weekend. No Action bupropion HCl 150 mg tablet extended release 24 hr 150 mg PO QAM Vyvanse 70 mg capsule 70 mg PO QAM trazodone 50 mg Tablet 50 mg PO BEDTIME Telehealth Telehealth Location of provider rendering services: practice address Location of patient: address on file Patient Identification confirmed using: Name, : Yes Telehealth method: video Patient verbally consented to treatment: Yes Patient verbally consented to billing insurance company: Yes Patient informed of any privacy concerns related to visit: Yes Minutes spent on Phone/Video with Pt.: 15
--- NOTE | 2022-04-20 15:04 | HO.PHPPROGNO ---
Subjective Subjective Date of Service: 04/20/22 Reason For Visit: bipolar,PTSD,PALOMO,ADHD,social anxiety Medical Problems Affecting Mental Status: No Interim History: Describes mood as ?I feel good, mixed emotions I guess?. Denies SI/HI, no safety concerns. Reports less sleep than usual over past week. Medication Compliance: Yes Side effects from medications: No Attending Groups: Yes Review of Systems Acute medical concerns: Yes Medical Review of Systems: unchanged Review of Systems Review of Systems Yes all other systems are reviewed and are negative Constitutional: Reports no additional constitutional complaints Mental Status Exam Mental Status Exam Narrative: NAD. Patient Appearance: Appropriate Patient Orientation: Person, Place, Time and Situation Level of Consciousness: Appropriate Patient Behavior: Appropriate, Cooperative and Good Eye Contact Mood Description: Appropriate Affect Description: Blunted and Flat Patient Cognition Impaired: No Ability to Follow Directions: Good Speech Pattern: Clear, Appropriate and Coherent Memory Description: Intact Hallucinations: None Delusions: Not Present Perceptual Disturbances: Depersonalization Thought Process: Intact Thought Content: positive for Intact Depressive Symptoms: Difficulty Sleeping, Loss of Int. in Activity and Increased Fatigue Judgement: Good Diagnostics Vital Signs (24Hr): BMI result Body Mass Index 21.7 Assessment & Plan Assessment & Plan (1) Bipolar 1 disorder, mixed, moderate: Status: Acute Code(s): F31.62 - Bipolar disorder, current episode mixed, moderate Assessment and Plan: Describes mood as ?I feel good, mixed emotions I guess?. Reports that they have found program to be helpful, overall symptoms have improved. Denies SI/HI, no safety concerns. Reports less sleep than usual over past week. Several nights ago slept under 2 hours. Last night slept between 5 and 6 hours. Reports that her normal amount is between 7-9 hours. States that she is ?trying to be grounded ?. States ?I feel like I am coping okay ?. Feels ready for discharge from [facility], although will miss the structure. Encouraged to reduce isolation by engaging in activities. Clinician has provided information regarding [employer] [facility] as well as other programs. We discussed lithium levels while in [facility], as well as recent increase with sertraline, and possible activation. Patient is seeing outpatient psychiatric provider tomorrow. (2) Cannabis use disorder, severe, dependence: Status: Acute Code(s): F12.20 - Cannabis dependence, uncomplicated Assessment and Plan: Patient continues to work towards reducing amount of cannabis used, was able to demonstrate insight and awareness regarding substance use, and its effects on mood. Plan 1. Patient appears stable from [facility] at this time. 2. Patient to follow-up with outpatient providers going forward. Patient educated on: diagnosis, medication risk/benefits, substance abuse and therapeutic strategies Informed Consent: understands Reason for contiued partial hosp. stay Substantial Risk for: stable for discharge Certification I certify that partial hospital treatment is medically necessary due to the symptoms and problems resulting from the patient's mental illness and the failure to treat the patient at the partial hospital level of care would likely result in the patient requiring inpatient psychiatric care which could not be prevented at a less intensive level of care. I spent minutes with the patient and/or on the patient floor today, greater than?50% of which was spent counseling/coordinating care. Discharge Plan Discharge Attending provider: Vinicius Thomson Medications: New propranolol 10 mg tablet 10 mg PO BID PRN (Reason: anxiety) Qty: 5 0RF lorazepam 0.5 mg tablet 0.5 mg PO DAILY PRN (Reason: anxiety) Qty: 30 0RF sertraline 50 mg tablet 50 mg PO DAILY Qty: 30 0RF lithium carbonate 600 mg capsule 600 mg PO BEDTIME Qty: 30 0RF Discontinued lithium carbonate 150 mg Capsule 150 mg PO DAILY lithium carbonate 450 mg Tablet Extended Release 450 mg PO BEDTIME lorazepam 0.5 mg Tablet 0.5 mg PO DAILY PRN (Reason: Anxiety) Rx Instructions: # 7 tabs filled 02/22/22. sertraline [Zoloft] 25 mg Tablet 37.5 mg PO DAILY Label Comments: Patient stated her prescriber increased from 25 mg to 37.5 mg daily this past weekend. No Action bupropion HCl 150 mg tablet extended release 24 hr 150 mg PO QAM Vyvanse 70 mg capsule 70 mg PO QAM trazodone 50 mg Tablet 50 mg PO BEDTIME Stand Alone Forms: Patient Portal Discharge page Telehealth Telehealth Location of provider rendering services: practice address Location of patient: address on file Patient Identification confirmed using: Name, : Yes Telehealth method: video Patient verbally consented to treatment: Yes Patient verbally consented to billing insurance company: Yes Patient informed of any privacy concerns related to visit: Yes Minutes spent on Phone/Video with Pt.: 15
--- NOTE | 2022-04-21 08:28 | PC.NURSE ---
Patient discharged from [facility] on 04/20/22. She stated she feels, ok regarding discharge and that she is starting to feel more stable. Patient did state she has difficulty with transitions and transitioning out of the program is hard. Denied SI. Patient stated she has periods where she feels down but is hopeful. Patient reports she has a prescriber appointment with her prescriber 04/21/22. Medications reviewed with patient. Patient reports she is taking medications as prescribed.
== END 2022-04-20 23:59 | disposition home or self-care (01) ==
LOC: HO.PHPA 11:30
PROVIDERS: Visit Provider Psychiatry & Neurology Psychiatry
DX: F31.63 Bipolar disorder, current episode mixed, severe, without psychotic features (principal); F12.20 Cannabis dependence, uncomplicated; Z79.899 Other long term (current) drug therapy
CPT/HCPCS: 90791; 90853

== ENCOUNTER → 2024-06-19 08:00 | Outpatient (BNV) | payer BC, SELFPAY | PROVIDERS: Visit Provider Psychiatry & Neurology Psychiatry | DX: F31.9 Bipolar disorder, unspecified (principal); F12.20 Cannabis dependence, uncomplicated; R41.840 Attention and concentration deficit; F99 Mental disorder, not otherwise specified | CPT/HCPCS: 90792; 90832; 99213 ==

== ENCOUNTER 2024-07-07 10:15 | Outpatient (RCR) | payer BC, SELFPAY ==
--- NOTE | 2024-06-19 14:16 | HO.PHP ---
Client's case has been opened and reviewed in team.
[2024-06-19 15:48] VITALS: BMI 24.1
[2024-06-19 15:49] VITALS: BP 128/89; PULSE 68; RESP 18; TEMP 36.8
--- NOTE | 2024-06-19 15:54 | PC.ADMIT ---
Nay is a 23 year old female who self referred to [facility] PHP, her most recent admission was back in February 2022. Nay is alert and oriented X4, she is well groomed, speech is clear, good eye contact, calm and cooperative. Nay is diagnosed with Bipolar I Disorder, Anxiety, and ADHD, and PTSD. She reports she has had A lot falling off my life, she reports her parents may be , reports she had a friend who she was talking to for a while stated I asked him where we stand, she reports she didn't get answer That triggered a lot of emotions, she reports that when she asked the second time He made me feel like if I was the problem. Nay reports endorsing depression, Loneliness, I have no friends, Am I the problem? She reports having feelings of I don't fit in, Nay starts crying responds well to staff support. She reports she recently left her job and it's been hard having structure. She reports she has Constant pain, I think this affects my mood at times. Nay reports that she is taking her meds, not all as prescribed as I'm testing them, medication education provided. When asked if she had any thoughts of wanting to hurt or kill self stated No, I have fleeting thoughts I wouldn't ever act on them. She continued to state It's situational because of things happening in my life, it's temporary, stress makes these thoughts come and go. When asked if she had thoughts to hurt others stated No. She reports her sleep has been disrupted usually she sleeps 5 hours and has been sleeping 3-4, she also reports endorsing depression and feeling like she has No energy, stated The desire to eat at times is not even there, as eating uses a lot of my energy. She reports she has good coping skills I like running in the llamas, swimming and hugging myself. She reports that at times she has scars from hugging as she scratches self or digs nails into skin and I don't realize it until after. She reports that she has been self reflecting stated I know this place is going to help me get back on track.
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
--- NOTE | 2024-06-27 22:43 | P.PNPSP_ITS ---
Subjective Subjective Date of Service: 06/27/24 Reason For Visit: bipolar,PALOMO,ADHS Interim History: My mood today is pretty good Reports that she has been doing a little better with the additional of ABilify, denies any side effects. SHe is still prone to vaccilations in her mood, and moments of low mood. Other times feels okay. She still continues on 2 mg tablet of ABilify, had been taking 1/2 tablet. She is noticing some rebound anxiety and headaches in the afternoon, especially after php. She still experiences these symptoms even on weekend without PHP groups. She is agreeable to lowering her dose of Vyvanse from 30 mg to 20 mg. She may be noticing more of these problems with cutting back marijauna use. May also be associated with cannabis use, but will try and see if reducing Vyvanse helps. Suggest she repeat dose of gunafacine in the afternoon. Gabapentin helpful for sleep as well. She denies any SI, HI, AH. VH. Medication Compliance: Yes Side effects from medications: No Attending Groups: Yes Review of Systems Acute medical concerns: No Mental Status Exam Mental Status Exam Narrative: Alert, oriented, in no acute distress. Calmer. Able to remain seated throughout encounter. Eye contact maintained. Mood improving, anxious, affect brighter, appropriate. Speech excessive, with normal rate, volume, without latency or pressured speech. Thought process linear, coherent. Future-oriented, denies SI, intention, urge or plan. Denies any aggressive ideation. No paranoia or delusional content elicited. Insight and judgment fair but adequate. Diagnostics Vital Signs (24Hr): BMI result Body Mass Index 24.1 Assessment & Plan Assessment & Plan (1) Bipolar disorder, unspecified: Status: Acute Code(s): F31.9 - Bipolar disorder, unspecified (2) Cannabis use disorder, severe, dependence: Status: Acute Code(s): F12.20 - Cannabis dependence, uncomplicated (3) Attention and concentration deficit: Status: Acute Code(s): R41.840 - Attention and concentration deficit (4) Other mental problems: Status: Acute Code(s): F99 - Mental disorder, not otherwise specified Plan decrease Vyvanse to 20 mg qam (3mg may be too activating) start guanfacine ER 1 mg qd titrate Abilify from 2 to 4 mg qd (will aim to work toward 5 mg - or if 4 mg in better will end up rxing for 3.5) continue other regular medications? Routine lab work ordered EKG, routine for baseline QTc for medication considerations UDS as indicated MassPat reviewed Continue to monitor as per protocol Patient educated on: diagnosis, medication risk/benefits and substance abuse Informed Consent: understands Reason for contiued partial hosp. stay Substantial Risk for: med/psych decompensation Certification I certify that partial hospital treatment is medically necessary due to the symptoms and problems resulting from the patient's mental illness and the failure to treat the patient at the partial hospital level of care would likely result in the patient requiring inpatient psychiatric care which could not be prevented at a less intensive level of care. Total time managing care of this patient today __30__ minutes. Discharge Plan Discharge Attending provider: bAy Shea Medications: New aripiprazole 2 mg tablet 2 mg PO BEDTIME Qty: 15 0RF lisdexamfetamine 20 mg capsule 20 mg PO QAM Qty: 14 0RF Rx Instructions: Partial Fill upon patient request. Continued lorazepam 0.5 mg tablet 0.5 mg PO DAILY PRN (Reason: anxiety) Qty: 30 0RF tretinoin 0.1 % cream 1 appl topical BEDTIME lithium carbonate 300 mg tablet extended release 300 mg PO BEDTIME Patient Comments: Per patient she takes [place] carbonate ER one 300mg tablet and one 450mg tablet for a total of 750mg at bedtime. triamcinolone acetonide [Triderm] 0.1 % cream 1 appl topical BID lithium carbonate 450 mg tablet extended release 450 mg PO BEDTIME Patient Comments: Per patient she takes [facility] carbonate ER one 300mg tablet and one 450mg tablet for a total of 750mg at bedtime. norgestimate-ethinyl estradiol [Vck-Yw-Tovcje] 0.18/0.215/0.25 mg-25 mcg tablet 1 tab PO DAILY dapsone [Aczone] 7.5 % gel with pump 1 appl topical DAILY Changed guanfacine 1 mg tablet extended release 24 hr 1 mg PO BID Qty: 30 0RF Discontinued lisdexamfetamine [Vyvanse] 40 mg capsule 30 mg PO QAM Patient Comments: Per patient she takes 30mg? Not all the time only when I need to conc entrate. No Action gabapentin 100 mg capsule 600 mg PO BEDTIME PRN (Reason: Insomnia) Print Language: Japanese
--- NOTE | 2024-07-01 17:21 | P.PNPSP_ITS ---
Subjective Subjective Date of Service: 07/01/24 Reason For Visit: bipolar,PALOMO,ADHS Interim History: Patient seen for follow-up, anticipating discharge at the end of program today.? Yesterday didnt get any headaches and not biting my lip anymore since we lowered dose of Vyvanse from 30 to 20 mg. Seems to be better tolerted and plans to stay at this dose. Mood is okay still some underlying depression, anxiety but lately I have been able to get up and going about my day and doesnt weigh on me . Says she also feels less triggered, feel better at keeping myself together . Reports no acute issues or concerns. Medication compliant, medications well-tolerated. Denies any adverse effects.? Mood is stable.? Denies any hopelessness or SI. Denies thoughts of harming self or others at this time. Denies any aggressive ideation or HI. Denies any paranoia or AH or VH. Sleep, appetite, energy stable. Medication Compliance: Yes Side effects from medications: No Attending Groups: Yes Review of Systems Acute medical concerns: No Medical Review of Systems: unchanged Mental Status Exam Mental Status Exam Narrative: Alert, oriented, in no acute distress. Calm, cooperative. Mood stable, affect appropriate. Speech normal. Thought process linear, coherent, more goal- directed. Thought content related to stressors, future-oriented, denies any helplessness, hopelessness or SI.? No aggressive ideation or HI. No paranoia or delusional content elicited. No evidence of psychosis. Insight and judgment fair-good. Diagnostics Vital Signs (24Hr): BMI result Body Mass Index 24.1 Assessment & Plan Assessment & Plan (1) Bipolar disorder, unspecified: Status: Acute Code(s): F31.9 - Bipolar disorder, unspecified (2) Cannabis use disorder, severe, dependence: Status: Acute Code(s): F12.20 - Cannabis dependence, uncomplicated (3) Attention and concentration deficit: Status: Acute Code(s): R41.840 - Attention and concentration deficit (4) Other mental problems: Status: Acute Code(s): F99 - Mental disorder, not otherwise specified Plan Discharge from [facility] continue Vyvanse 20 mg qam (3mg may be too activating) continue guanfacine ER 1 mg qd continue Abilify at 5 mg qd contiue lithium carbonate 750 mg qhs continue other regular medications? Lab order given, labwork not done Refills sent to pharmacy Will defer further medication management to outpatient provider *Safety plan reviewed *Discharge diagnoses, treatment course, discharge plan have been reviewed with patient (including medication regime, medication management, potential side effects) as well as treatment rationale were also revisited *Discharge paperwork signed and given to patient, copy sent for scanning to chart Patient educated on: diagnosis, medication risk/benefits and substance abuse Informed Consent: understands Reason for contiued partial hosp. stay Substantial Risk for: stable for discharge Certification I certify that partial hospital treatment is medically necessary due to the symptoms and problems resulting from the patient's mental illness and the failure to treat the patient at the partial hospital level of care would likely result in the patient requiring inpatient psychiatric care which could not be prevented at a less intensive level of care. Total time managing care of this patient today __30__ minutes. Discharge Plan Discharge Attending provider: Aby Shea Medications: New aripiprazole 2 mg tablet 2 mg PO BEDTIME Qty: 15 0RF lisdexamfetamine 20 mg capsule 20 mg PO QAM Qty: 14 0RF Rx Instructions: Partial Fill upon patient request. gabapentin 600 mg tablet 600 mg PO BEDTIME Qty: 30 0RF aripiprazole [Abilify] 5 mg tablet 5 mg PO DAILY Qty: 30 0RF Continued lorazepam 0.5 mg tablet 0.5 mg PO DAILY PRN (Reason: anxiety) Qty: 30 0RF tretinoin 0.1 % cream 1 appl topical BEDTIME lithium carbonate 300 mg tablet extended release 300 mg PO BEDTIME Patient Comments: Per patient she takes Turpin carbonate ER one 300mg tablet and one 450mg tablet for a total of 750mg at bedtime. triamcinolone acetonide [Triderm] 0.1 % cream 1 appl topical BID lithium carbonate 450 mg tablet extended release 450 mg PO BEDTIME Patient Comments: Per patient she takes Turpin carbonate ER one 300mg tablet and one 450mg tablet for a total of 750mg at bedtime. norgestimate-ethinyl estradiol [Qrf-Oz-Rkspot] 0.18/0.215/0.25 mg-25 mcg tablet 1 tab PO DAILY dapsone [Aczone] 7.5 % gel with pump 1 appl topical DAILY Changed guanfacine 1 mg tablet extended release 24 hr 1 mg PO BID Qty: 30 0RF Discontinued gabapentin 100 mg capsule 600 mg PO BEDTIME PRN (Reason: Insomnia) lisdexamfetamine [Vyvanse] 40 mg capsule 30 mg PO QAM Patient Comments: Per patient she takes 30mg? Not all the time only when I need to concentrate. Print Language: Kazakh
== END 2024-07-07 23:59 | disposition home or self-care (01) ==
LOC: HO.PHPA 10:15
PROVIDERS: Visit Provider Psychiatry & Neurology Psychiatry
DX: F31.9 Bipolar disorder, unspecified (principal); R41.840 Attention and concentration deficit; F99 Mental disorder, not otherwise specified; F12.20 Cannabis dependence, uncomplicated
CPT/HCPCS: 90791; 90853